=== PATIENT | female | born 1940 | race Caucasian/White ===

== ENCOUNTER 2018-11-18 18:51 | Inpatient (IN) ==
--- NOTE | 2018-11-18 19:24 | PROVIDER DOCUMENTATION ---
HPI-General Adult - General Chief Complaint: Back Pain Stated Complaint: BACK PAIN Time Seen by Provider: 11/18/18 19:13 Source: patient Allergies/Adverse Reactions: Patient Allergies Allergy/AdvReac Type Severity Reaction Status Date / Time diphenhydramine HCl * Allergy SWELLING Verified 02/28/15 05:30 [From Benadryl] morphine Allergy Unknown Verified 03/03/15 13:22 Sulfa (Sulfonamide Allergy ANAPHYLAXIS Verified 03/03/15 13:22 Antibiotics) prednisone AdvReac Unknown Verified 05/10/18 06:39 Home Medications: Home Medication List Medication Instructions Recorded Confirmed Last Taken Type Atenolol 25 mg PO QHS 02/28/15 08/03/15 02/27/15 21:00 History Diazepam [Valium] 10 mg PO HS PRN PRN 02/28/15 08/03/15 02/27/15 21:00 History Gabapentin 1 tab PO BID 02/28/15 08/03/15 02/27/15 21:00 History Meloxicam 15 mg PO DAILY 02/28/15 08/03/15 02/27/15 History Milnacipran [Savella] 100 mg PO BID 02/28/15 08/03/15 02/27/15 History Oxycodone HCl/Acetaminophen 1 each PO Q4H PRN PRN 02/28/15 08/03/15 02/28/15 History [Oxycodone-Acetaminophen 10-325] Polyethylene Glycol 3350 17 gm PO DAILY 02/28/15 08/03/15 02/27/15 History [Smoothlax] Metronidazole [Flagyl] 500 mg PO TID #33 tablet 08/06/15 Unknown Rx Benzonatate [Tessalon Perle] 100 mg PO TID PRN PRN #30 cap 05/10/18 Unknown Rx - History of Present Illness -Gen Adult Nature of Presenting Problems: patient is a 77 yowf presenting to the ED today for back pain. she reports she had an endoscopy done this morning to get her esophagus stretched and she is now having increased back pain. she reports the pain is worse when she takes a deep breath. family reports she has chronic pain, but this pain is worse. patient reports she had some pain leaving the procedure, but the pain has worsened in the last 30 minutes. she denies any NVD, dizziness, cough, fever, or any other symptoms. patient has pain to middle back on palpation. she reports the procedure was done at [facility] today. Location of Pain/Injury: reports: back Pain Radiation: reports: no radiation Quality of Pain: reports: aching, sharp Severity: reports: mild Onset/Duration: reports: just prior to arrival Timing: reports: still present Context/Activities at Onset: reports: none Modifying Factors: improves with: nothing Associated Symptoms: reports: back/neck pain, pain with inspiration. denies: anxiety, arm pain, chest pain, constipation, cough, diaphoresis, diarrhea, dizziness, EENT symptoms, fatigue, fever/chills, genitourinary problems, headaches, heartburn, joint pain, loss of appetite, malaise, muscle aches, sinus congestion/drainage, nausea, rash, seizure, shortness of breath, sensory/motor loss, swelling/mass in abdomen, syncope, vomiting, weakness, trouble walking Similar Symptoms Previously?: No Recently seen or treated by another doctor?: Yes Review of Systems - Adult - REVIEW OF SYSTEMS - ADULT Constitutional: reports: no symptoms reported. denies: chills, fever Eyes: reports: no symptoms reported Ears, Nose, Mouth & Throat: reports: no symptoms reported Cardiovascular: reports: no symptoms reported. denies: chest pain, palpitations, syncope Respiratory: reports: no symptoms reported. denies: cough, shortness of breath Gastrointestinal: reports: no symptoms reported. denies: abdominal pain, constipation, diarrhea, nausea, vomiting Genitourinary: reports: no symptoms reported Musculoskeletal: reports: no symptoms reported Integumentary: reports: no symptoms reported Neurological: reports: no symptoms reported. denies: dizziness/vertigo, headache/migraines Psychiatric: reports: no symptoms reported Endocrine: reports: no symptoms reported Hematologic/Lymphatic: reports: no symptoms reported Allergic/Immunologic: reports: no symptoms reported All Other Systems: Reviewed and Negative Past History - Adult - PAST MEDICAL HISTORY-ADULT Review of Records: reports: Old Records Reviewed, Nursing Assessment Review, Medications Reviewed Cardiovascular: reports: denies history Respiratory: reports: denies history Gastrointestinal: reports: denies history Genitourinary: reports: denies history Musculoskeletal: reports: chronic pain Neurological: reports: spinal cord/brain injury Psychiatric: reports: denies history Endocrine/Immune: reports: denies history - PRIOR SURGERIES/PROCEDURES Surgical/Procedure History: reports: orthopedic (extremity) - IMMUNIZATION STATUS Childhood Immunizations: See Nurse Assessment Flu Vaccine: See Nurse Assessment - SOCIAL HISTORY Smoking: denies Physical Exam-General - PHYSICAL EXAM-ADULT Initial Vital Signs Reviewed: Yes - CONSTITUTIONAL General Appearance: appears well, alert, no apparent distress, other (patient appears in pain) - EYES Eyes: PERRL/EOMI - HEAD, EARS, NOSE, MOUTH & THROAT HENMT: normocephalic/atraumatic, moist mucous membranes, normal ENT inspection - NECK Neck: non-tender, full range of motion, supple - RESPIRATORY Respiratory: chest non-tender, lungs clear, normal breath sounds, no pleuratic chest pain, no respiratory distress, no accessory muscle use, pain on inspiration - CARDIOVASCULAR Cardiovascular: normal peripheral pulses, regular rate, rhythm, no edema, no JVD - GASTROINTESTINAL (ABDOMEN) Abdominal Exam: normal bowel sounds, non tender, soft - LYMPHATIC Lymphatic: no adenopathy - MUSCULOSKELETAL Back Exam: normal inspection, no CVA tenderness, no vertebral tenderness Extremity: normal range of motion, non-tender, normal gait - SKIN Integumentary: normal color, normal turgor, warm/dry - NEUROLOGIC Neurologic: grossly normal, no motor/sensory deficits - PSYCHIATRIC Psych/Mental Status: normal mood/affect, normal thought content, normal thought process, oriented x 3 Progress - PLAN OF CARE/RESULTS Progress/Plan/Lab Results: Vital Signs - 8 hr 11/18/18 18:59 Temperature 98.2 F Pulse Rate 90 Respiratory Rate 18 Blood Pressure 141/88 O2 Sat by Pulse Oximetry 94 L discussed plan of care with patient and family- they understand and agree with plan of care and deny any questions at this time. Dr. Casillas from [facility] did endoscopy today. Result Diagrams: 11/18/18 19:49 11/18/18 19:38 - XRAY 1 XRAY Study: Chest Impression: See EMR Report ( Signed CHEST-2 VIEWS - 11/18/2018 INDICAT ION: back pain post endoscopy COMPARISON: 05/10/2018 FINDINGS: There is stable mild chronic atelectasis in the medial right lung base. The lungs are clear. Heart size is normal. No pneumothorax or pleural effusion. IMPRESSION: No acute disease or change from prior. Electronically signed by Gurpreet Del Rio 11/18/2018 9:03 PM 11/[id number]/[id number] Interpreting Physician: Gurpreet Del Rio MD Dictated Date/Time: 11/18/182101 cc: Herlinda Nuñez; None,PCP) - CT/MRI 1 CT Study: Thorax Impression: See EMR Report (Signed CT THORAX W/CONTRAST - 11/18/2018 INDICATION: back pain post endoscopy COMPARISON: None FINDINGS: There is significant wall thickening of the distal half of the esophagus. The wall thickness measures up to 12 mm. This is asymmetric to the left side. There are normal-sized mediastinal lymph nodes. No adenopathy. Upper abdominal images are unremarkable. The stomach appears normal. Heart and great vessels are normal. There is some mild infiltrate in the left lower lobe. This is mainly in the posterior costophrenic angle. No pneumothorax or pleural effusion. No free air or free fluid. There are moderate degenerative changes of the spine. No acute or suspicious bony lesion. IMPRESSION: 1. Left lower lobe infiltrate/pneumonia. 2. Significant wall thickening of the distal esophagus. Masslike thickening particularly of the posterior left wall. This exam was performed using automated exposure control, adjustment of mA or kV according to patient size, and/or use of iterative reconstruction technique Electronically signed by Gurpreet Del Rio 11/18/2018 10:08 PM 11/18/[id number] Interpreting Physician: Gurpreet Del Rio MD Dictated Date/Time: 11/18/182202 cc: Herlinda Nuñez; None,PCP) - CONSULTS/PCP/HOSPITALIST Notification #1 *Consult/PCP/Hospitalist*: Dr. Qureshi Time Discussed: 22:55 Reason/Comments: admit for pneumonia Consult Disposition: Admit Departure - Departure Date of Disposition Decision: 11/18/18 Time of Disposition Decision: 22:51 DIAGNOSIS: Pneumonia Qualifiers: Pneumonia type: due to unspecified organism Laterality: left Lung location: lower lobe of lung Qualified Code(s): J18.1 - Lobar pneumonia, unspecified organism Urinary tract infection Qualifiers: Urinary tract infection type: site unspecified Hematuria presence: without hematuria Qualified Code(s): N39.0 - Urinary tract infection, site not specified Disposition: ADMITTED INPATIENT 09 Certified Medical Emergency: Emergent Condition: Stable Referrals and Follow-Ups: None,PCP [Primary Care Provider] - - Critical Care Note This patient required my direct & personal management of CC.: No Attestation - Physician/ ANTOINE Attestation Patient care was provided by Advanced Practice Provider:: Yes Advanced Practice Provider:: Herlinda Nuñez Advanced Practice Provider documentation review:: The Mid-level provider documentation, treatment plan and medical decision making was reviewed by the physician who agrees with all treatment and medical decision making by the MLP. The physician spent face to face time with patient:: No Advanced Practice Provider documentation review:: Supervising physician onsite a nd consulted in the evaluation and care of this patient. The physician did not have a face to face encounter with the patient.
[2018-11-18 19:53] LABS: BASO# 0.02 X1000 (0.0-0.2); BASO% 0.1 % (0.0-0.8); EOS# 0.02 X1000 (0.0-0.7); EOS% 0.1 % (0.0-10.0); HEMATOCRIT 41.4 % (37.0-47.0); HEMOGLOBIN 13.8 g/dL (12.0-16.0); IMM GRAN# 0.03 X1000 (0.0-0.04); IMM GRAN% 0.2 % (0.0-0.5); LYMPH# 1.36 X1000 (1.2-3.4); LYMPH% 8.3 % (20.5-51.1); MCH 30.5 PG (27-31); MCHC 33.3 g/dL (33-37); MCV 91.6 FL (81-99); MONO# 1.71 X1000 (0.11-0.59); MONO% 10.5 % (1.7-9.3); MPV 10.3 FL (7.4-10.4); NEUT# 13.18 X1000 (1.4-6.5); NEUT% 80.8 % (42.2-75.2); PLT 276 X1000 (130-400); RBC 4.52 XMIL (4.2-5.4); RDW 14.7 % (11.5-14.5); WBC 16.32 X1000 (4.8-10.8)
[2018-11-18 20:24] LABS: AGAP 13; ALBUMIN 4.5 g/dL (3.5-5.0); ALKALINE PHOSPHATASE 85 U/L (32-104); BUN 17 mg/dL (8-22); CALCIUM 9.4 mg/dL (8.8-10.2); CHLORIDE 103 mmol/L (98-107); COSMO 285; CREATININE 0.8 mg/dL (0.5-0.9); ESTIMATED GFR > 60; GLUCOSE 135 mg/dL (70-104); GOT 16 U/L (10-30); GPT 10 U/L (10-36); POTASSIUM 3.7 mmol/L (3.5-5.1); SODIUM 141 mmol/L (136-145); TCO2 26 mmol/L (25-35); TOTAL PROTEIN 7.5 g/dL (6.3-8.3)
--- NOTE | 2018-11-18 21:06 | Diag Imaging Result Doc PS360 ---
CHEST-2 VIEWS - 11/18/2018 INDICATION: back pain post endoscopy COMPARISON: 05/10/2018 FINDINGS: There is stable mild chronic atelectasis in the medial right lung base. The lungs are clear. Heart size is normal. No pneumothorax or pleural effusion. IMPRESSION: No acute disease or change from prior. Electronically signed by Gurpreet Del Rio 11/18/2018 9:03 PM
[2018-11-18 21:49] LABS: BILIRUBIN URINE NEGATIVE (NEGATIVE); BLOOD URINE 1+ (NEGATIVE); CLARITY VERY CLOUDY (CLEAR); COLOR YELLOW; GLUCOSE URINE NEGATIVE (NEGATIVE); KETONE URINE 1+(Small) mg/dL (NEGATIVE); LEUKOCYTES URINE 2+ (NEGATIVE); NITRITE URINE POSITIVE (NEGATIVE); PROTEIN URINE 1+(30 mg/dL) mg/dL (NEGATIVE); UROBILINOGEN URINE NORMAL
[2018-11-18 22:05] LABS: URINE SOURCE CLEAN CATCH
[2018-11-18 22:08] LABS: URINE BACTERIA 4+ /HFP; URINE CAST NONE SEEN /LPF; URINE CRYSTAL NONE SEEN /HPF; URINE EPITHELIAL CELLS <10 /HPF (<10); URINE RBC <10 /HPF (<10); URINE SMALL ROUND CELLS TRANSITIONAL PRESENT; URINE WBC TNTC /HPF (<10); URINE YEAST NONE SEEN /HPF
--- NOTE | 2018-11-18 22:10 | Diag Imaging Result Doc PS360 ---
CT THORAX W/CONTRAST - 11/18/2018 INDICATION: back pain post endoscopy COMPARISON: None FINDINGS: There is significant wall thickening of the distal half of the esophagus. The wall thickness measures up to 12 mm. This is asymmetric to the left side. There are normal-sized mediastinal lymph nodes. No adenopathy. Upper abdominal images are unremarkable. The stomach appears normal. Heart and great vessels are normal. There is some mild infiltrate in the left lower lobe. This is mainly in the posterior costophrenic angle. No pneumothorax or pleural effusion. No free air or free fluid. There are moderate degenerative changes of the spine. No acute or suspicious bony lesion. IMPRESSION: 1. Left lower lobe infiltrate/pneumonia. 2. Significant wall thickening of the distal esophagus. Masslike thickening particularly of the posterior left wall. This exam was performed using automated exposure control, adjustment of mA or kV according to patient size, and/or use of iterative reconstruction technique Electronically signed by Gurpreet Del Rio 11/18/2018 10:08 PM
[2018-11-18] MEDS ORDERED: NS 1,000 ML IV ONE ×2 (22:52→22:56)
[2018-11-18] MEDS ORDERED: ZITHROMAX PO ONE (22:54)
[2018-11-18] MEDS ORDERED: ROCEPHIN 1 GM in NS 50 ML IV ONE (22:54)
[2018-11-19] MEDS ORDERED: PERCOCET-10 PO ONE (00:22)
[2018-11-19] MEDS ORDERED: NEURONTIN PO SCH ×3 (09:00→21:00)
[2018-11-19] MEDS: DITROPAN PO SCH (09:57)
[2018-11-19] MEDS: CYMBALTA PO SCH (09:57)
[2018-11-19] MEDS: PERCOCET-10 PO PRN ×3 (09:57→21:01)
[2018-11-19] MEDS: ZANAFLEX PO SCH ×2 (09:57→20:56)
[2018-11-19] MEDS: ZITHROMAX PO SCH (09:57)
[2018-11-19 10:34] LABS: INR 1.1; PROTIME 14.8 Seconds (11.0-16.0); PTT 29.5 Seconds (22.3-41.8)
[2018-11-19] MEDS: NEURONTIN PO SCH ×2 (15:30→20:55)
[2018-11-19] MEDS: ZOSYN 3.375 GM in NS 50 ML IV SCH ×2 (15:31→21:26)
--- NOTE | 2018-11-19 16:10 | HISTORY AND PHYSICAL ---
CHIEF COMPLAINT: Back pain. HISTORY OF PRESENT ILLNESS: This is a 77-year-old female who presented to the emergency room complaining of increasing back pain. The patient underwent an esophageal dilatation in the morning prior to presenting to the emergency room. She stated that after the procedure she developed this back pain, that they were aware, and that despite this, she was discharged after the procedure. The pain continued to increase. She stated that "it got a lot worse just before I came to the emergency room, that is why I am here." She denied any chest pain, any syncope, any dizziness, shortness of breath. PAST MEDICAL HISTORY: 1. Esophageal stricture. 2. Hypertension. 3. Fibromyalgia. 4. Chronic pain. PAST SURGICAL HISTORY: Appendectomy, hysterectomy, tonsillectomy, right knee surgery. SOCIAL HISTORY: She denies alcohol, tobacco, or illicit drug use. ALLERGIES: Benadryl which causes swelling. Morphine and prednisone with unknown pain. Sulfa which causes anaphylaxis. HOME MEDICATIONS: A list will be obtained by the nursing staff and once verified, will review and restarted as is appropriate. REVIEW OF SYSTEMS: Discussed with patient with pertinent positives stated in the HPI. She denied any syncope or dizziness, any chest pain or palpitations, any nausea, vomiting, diarrhea, constipation, any hematuria, dysuria, frequency, urgency. PHYSICAL EXAMINATION: GENERAL: This is a 77-year-old female who is lying in the bed, in no distress. VITAL SIGNS: Blood pressure is 129/69, with a heart rate of 84, respirations 16, temperature is 99.4 degrees, with room air saturations 98%. EYES: Pupils are equal, round, react to light. EOMs are intact. Sclerae are anicteric. HENT: Head is normocephalic, atraumatic. Mucous membranes are moist. NECK: Supple. Trachea midline. CARDIOVASCULAR: Regular rate and rhythm. S1 and S2 appreciated. She has no lower extremity edema. Peripheral pulses are palpable x4 extremities. Calves are nontender bilateral. PULMONARY: Breath sounds are clear with no increased work of breathing noted. Chest rises and falls symmetrically with respiration. GENITOURINARY: She has no CVA nor suprapubic tenderness. GASTROINTESTINAL: Abdomen is soft, nontender, nondistended. Bowel sounds in all 4 quadrants. NEUROLOGIC: She is alert and oriented x3. SKIN: Warm and dry. LABS: WBC is 16.3, with hemoglobin 13.8, hematocrit 41.4, platelets of 276,000. Sodium is 141, potassium 3.7, BUN 17, creatinine 0.8, with a glucose of 135. Urinalysis is positive nitrites with too numerous to count microscopic white blood cells and 4+ bacteria. Blood cultures and urine culture pending. CT of the chest reveals left lower lobe infiltrate or pneumonia. Chest x- ray, no acute disease. ASSESSMENT AND PLAN: 1. Left lower lobe pneumonia. This could very likely be aspiration as the patient is just a few hours postop having an esophageal dilatation. We will stop Rocephin, change her to Zosyn, and continue her Zithromax. We will start incentive spirometer. Order for her to be out of the bed in the chair with meals and p.r.n. 2. Possible urinary tract infection. We will continue antibiotics as stated above and watch for urine culture. 3. Chronic back pain. We will continue her home medications. 4. Leukocytosis which is from pneumonia and urinary tract infection. 5. For deep vein thrombosis prophylaxis will use SCDs and for gastrointestinal prophylaxis Prilosec. Plan discussed with Dr. Qureshi. Further treatments pending hospital course. Dictated by MANOJ Siu for Madhav Qureshi MD cc: MANOJ Siu MD [facility]
--- NOTE | 2018-11-19 20:25 | HISTORY AND PHYSICAL ---
ADDENDUM: Patient seen and examined by myself. Full note dictated and discussed with nurse practitioner. Patient presented to the hospital initially complaining of back pain, noting that she was having some nausea. She had an EGD where they stretched her esophagus a few days ago. Notes that symptoms seem to have continued to worsen since then. She has increased cough and congestion. We are going to admit her to the hospital. She appears to have pneumonia. We are going to treat for aspiration pneumonia and will follow. cc: Madhav Qureshi MD
[2018-11-19] MEDS: PRILOSEC PO SCH (20:55)
[2018-11-19] MEDS: DESYREL PO SCH (20:55)
[2018-11-19] MEDS: TENORMIN PO SCH (20:56)
[2018-11-19] MEDS ORDERED: ROCEPHIN 1 GM in NS 50 ML IV SCH (23:00)
[2018-11-20] MEDS: ZOSYN 3.375 GM in NS 50 ML IV SCH ×4 (03:07→21:52)
[2018-11-20] MEDS: PRILOSEC PO SCH ×2 (06:16→20:56)
[2018-11-20] MEDS: PERCOCET-10 PO PRN ×3 (06:23→23:31)
[2018-11-20 08:50] LABS: HEMATOCRIT 33.8 % (37.0-47.0); HEMOGLOBIN 10.9 g/dL (12.0-16.0); MCH 29.9 PG (27-31); MCHC 32.2 g/dL (33-37); MCV 92.9 FL (81-99); MPV 10.2 FL (7.4-10.4); RBC 3.64 XMIL (4.2-5.4); RDW 14.9 % (11.5-14.5); WBC 10.74 X1000 (4.8-10.8)
[2018-11-20 09:01] LABS: AGAP 9; ALBUMIN 3.4 g/dL (3.5-5.0); ALKALINE PHOSPHATASE 65 U/L (32-104); BUN 13 mg/dL (8-22); CALCIUM 8.4 mg/dL (8.8-10.2); CHLORIDE 106 mmol/L (98-107); COSMO 281; CREATININE 0.8 mg/dL (0.5-0.9); ESTIMATED GFR > 60; GLUCOSE 155 mg/dL (70-104); GOT 12 U/L (10-30); GPT 9 U/L (10-36); POTASSIUM 3.9 mmol/L (3.5-5.1); SODIUM 139 mmol/L (136-145); TCO2 24 mmol/L (25-35); TOTAL PROTEIN 6.1 g/dL (6.3-8.3)
[2018-11-20] MEDS: ZANAFLEX PO SCH ×2 (09:36→20:56)
[2018-11-20] MEDS: ZITHROMAX PO SCH (09:36)
[2018-11-20] MEDS: CYMBALTA PO SCH (09:36)
[2018-11-20] MEDS: DITROPAN PO SCH (09:36)
[2018-11-20] MEDS: NEURONTIN PO SCH ×3 (09:36→20:56)
--- NOTE | 2018-11-20 19:25 | PROGRESS NOTE ---
DATE: 11/20/2018 SUBJECTIVE: Patient overall notes that she is starting to feel a little bit better. She is having less cough and congestion. Her back pain is improved. OBJECTIVE: Vital signs: Temperature 98 degrees, pulse 83, respiratory rate 18, BP 121/55. General: Patient is awake, alert, currently in no respiratory distress. She is pleasant to talk with. HEENT: Normocephalic. Neck: Supple. Cardiovascular: Regular rate. No murmurs. Chest: Clear. No crackles. No wheezing. Good air movement. Abdomen: Soft, nondistended. Extremities: Moves all extremities. Neurologic: No focal changes. ASSESSMENT: 1. Left lower lobe pneumonia. 2. Gram-negative michelle urinary tract infection. 3. Chronic pain. 4. Leukocytosis. PLAN: We will continue patient in the hospital. Continue antibiotics and will follow. cc: Madhav Qureshi MD
[2018-11-20] MEDS: DESYREL PO SCH (20:56)
[2018-11-20] MEDS: TENORMIN PO SCH (20:56)
[2018-11-21] MEDS: ZOSYN 3.375 GM in NS 50 ML IV SCH ×2 (03:08→09:27)
[2018-11-21] MEDS: PRILOSEC PO SCH ×2 (06:12→20:56)
[2018-11-21] MEDS: CYMBALTA PO SCH (09:26)
[2018-11-21] MEDS: NEURONTIN PO SCH ×3 (09:26→20:56)
[2018-11-21] MEDS: DITROPAN PO SCH (09:26)
[2018-11-21] MEDS: PERCOCET-10 PO PRN ×3 (09:27→23:18)
[2018-11-21] MEDS: ZANAFLEX PO SCH ×2 (09:27→20:57)
[2018-11-21] MEDS: ZITHROMAX PO SCH (09:27)
[2018-11-21] MEDS ORDERED: SEPTRA DS PO SCH (11:30)
[2018-11-21] MEDS: LEVAQUIN PO SCH (12:34)
--- NOTE | 2018-11-21 16:45 | EKG Report ---
Test Performed on : 11/21/2018 3:47:14 PM Test Reason : irregular telemetry reading Blood Pressure : / mmHG Vent. Rate : 072 BPM Atrial Rate : 072 BPM P-R Int : 144 ms QRS Dur : 082 ms QT Int : 414 ms P-R-T Axes : 051 027 063 degrees QTc Int : 453 ms Normal sinus rhythm. Possible Anterior infarct (cited on or before 02-AUG-2015) Abnormal ECG When compared with ECG of 02-AUG-2015 20:18, Vent. rate has decreased BY 62 BPM Criteria for Inferior infarct are no longer present Confirmed by Devyn Jin MD ([id number]) on 11/25/2018 9:38:35 PM
--- NOTE | 2018-11-21 19:12 | PROGRESS NOTE ---
DATE: 11/21/2018 SUBJECTIVE: The patient notes that she is feeling a lot better. She is still kind of fatigued and tired, still very nervous about going home. Denies any cough or congestion. OBJECTIVE: Vital signs reviewed. Temperature 97.5 degrees, pulse 65, respiratory 18, BP 131/65.General: The patient is awake, alert. She is in no distress. HEENT: Normocephalic. Neck supple. Cardiovascular: Regular rate. No murmurs. Chest clear, nonlabored. No wheezing. Abdomen soft, nondistended. Extremities: Moves all extremities. ASSESSMENT: 1. Escherichia coli urinary tract infection, pansensitive. 2. Left lower lobe pneumonia. 3. Chronic pain. 4. Leukocytosis. 5. Generalized weakness. PLAN: We will continue the patient in the hospital today. We will attempt to change her antibiotics. We will try to assist her in getting out of bed. Hopefully she can get strong enough to go home soon. cc: Madhav Qureshi MD
[2018-11-21] MEDS: DESYREL PO SCH (20:56)
[2018-11-21] MEDS: TENORMIN PO SCH (20:57)
[2018-11-22] MEDS: PERCOCET-10 PO PRN ×3 (04:47→20:43)
[2018-11-22] MEDS: PRILOSEC PO SCH ×2 (06:20→20:31)
[2018-11-22] MEDS: CYMBALTA PO SCH (10:25)
[2018-11-22] MEDS: ZANAFLEX PO SCH ×2 (10:25→20:31)
[2018-11-22] MEDS: DITROPAN PO SCH (10:25)
[2018-11-22] MEDS: LEVAQUIN PO SCH (10:25)
[2018-11-22] MEDS: NEURONTIN PO SCH ×3 (10:25→20:31)
[2018-11-22] MEDS ORDERED: EXCEDRIN MIGRAINE PO PRN (10:45)
[2018-11-22] MEDS: CULTURELLE PO SCH ×2 (12:30→20:31)
--- NOTE | 2018-11-22 14:29 | PROGRESS NOTE ---
DATE: 11/22/2018 SUBJECTIVE: Patient notes she did not feel well this morning. States she has been having some abdominal pain, a little bit of nausea. She has had some diarrhea denies any blood in her stool. Denies fever, hematemesis, hematochezia. PHYSICAL EXAMINATION: Temperature 99.1, pulse 83, respiratory 18, BP 106/36.General: Patient is awake, alert. She does appear slightly more ill today as she is having difficulty getting to the restroom and back. HEENT: Normocephalic. Neck: Supple. Cardiovascular: Regular rate. No murmurs. Chest: Clear nonlabored. Abdomen: Soft, nondistended, nontender. Extremities: Moves all extremities. ASSESSMENT: 1. Diarrhea. 2. Left lower lobe pneumonia. 3. Escherichia coli urinary tract infection, pansensitive. 4. Chronic pain. 5. Depression. 6. Leukocytosis. PLAN: We will check C. difficile. Place her on a probiotic. We will continue to follow. Will keep her in the hospital today given her current symptoms. Further orders as needed. cc: Madhav Qureshi MD
[2018-11-22] MEDS: DESYREL PO SCH (20:31)
[2018-11-22] MEDS: TENORMIN PO SCH (20:31)
[2018-11-23] MEDS: PRILOSEC PO SCH (06:02)
[2018-11-23 07:35] VITALS: BP 133/73
[2018-11-23] MEDS: NEURONTIN PO SCH (10:14)
[2018-11-23] MEDS: ZANAFLEX PO SCH (10:14)
[2018-11-23] MEDS: LEVAQUIN PO SCH (10:14)
[2018-11-23] MEDS: DITROPAN PO SCH (10:14)
[2018-11-23] MEDS: CULTURELLE PO SCH (10:14)
[2018-11-23] MEDS: CYMBALTA PO SCH (10:14)
--- NOTE | 2018-11-24 13:36 | DISCHARGE SUMMARY ---
ADMISSION DATE: 11/19/2018 DISCHARGE DATE: 11/23/2018 ADMISSION DIAGNOSIS: 1. Left lower lobe pneumonia. 2. Possible urinary tract infection. 3. Chronic back pain. 4. Leukocytosis secondary to pneumonia and urinary tract infection. DISCHARGE DIAGNOSIS: 1. Diarrhea. 2. Left lower lobe pneumonia. 3. Escherichia coli urinary tract infection pansensitive. 4. Chronic pain. 5. Depression. 6. Leukocytosis. CONSULTATIONS: None. SURGERIES PROCEDURES: None. HOSPITAL COURSE: The night of 11/18/2018 Ms. Miranda 77-year-old female presented to [facility] with complaints of increasing back pain. Apparently she had undergone esophageal dilatation the morning prior to presentation. She developed this back pain after having the procedure done. After being discharged from having the procedure she continued to have an increase in pain in her back and that is what brought her here. She had a left lower lobe pneumonia found on imaging was started on Zosyn and Zithromax, found to have a possible UTI with antibiotics that would cover and continue her on her home medications for pain control, developed some diarrhea during her stay, the urinary tract infection came back as E coli but pansensitive. Due to the diarrhea being on antibiotics she was added some probiotics and today was discharged home with Levaquin. DISCHARGE VITAL SIGNS: Temperature 98.3 degrees, heart rate 72, respiratory rate 16, blood pressure 133/73, O2 saturation 94% on room air. DISCHARGE LAB DATA: White blood cells 10,000, hemoglobin 10, hematocrit 33, platelet count 198,000, sodium 139, potassium 3.9, BUN is 13, creatinine 0.8, glucose 155, calcium 8.4, bilirubin 0.50, AST 12, ALT 9, albumin 3.4, lactate 1.3. Micro, blood cultures negative, urine culture E coli pansensitive and negative ESBL . IMAGING: On the chest x-ray no acute disease or change from prior, chest CT left lower lobe infiltrate pneumonia, significant wall thickening of the distal esophagus masslike thickening particularly of the posterior left wall. EKG normal sinus rhythm, rate 72, QTc 453. DISCHARGE MEDICATIONS: 1. Atenolol 25 mg p.o. nightly. 2. Trazodone 100 mg p.o. nightly. 3. Cymbalta 30 mg p.o. daily. 4. Ditropan 5 mg p.o. daily. 5. Neurontin 600 mg p.o. t.i.d. 6. Mobic 50 mg p.o. daily. 7. Percocet 1 p.o. every 4 hours p.r.n. 8. Zanaflex 4 mg p.o. twice daily. 9. Levaquin 500 mg p.o. daily for 6 more days. DISCHARGE DIET: Regular. DISCHARGE ACTIVITY: As tolerated. DISCHARGE INSTRUCTIONS: If her condition changes contact physician and/or return to emergency department, changes may include but are not limited to shortness of breath, increased fatigue, excessive bleeding, unexplained weight loss or gain, unmanageable pain signs or symptoms of infection. DISCHARGE PHYSICIAN FOLLOWUPS: Primary care provider Cheyenne Maguire. DISCHARGE DISPOSITION: Home. Dictated by MANOJ Pineda for Madhav Qureshi MD cc: MANOJ Pineda MD
--- NOTE | 2018-11-24 21:38 | DISCHARGE SUMMARY ---
ADMISSION DATE: 11/19/2018 DISCHARGE DATE: 11/23/2018 ADDENDUM: Patient seen and examined by myself. Full note dictated and discussed with nurse practitioner. On discharge, patient is awake, alert. She did have some diarrhea yesterday, but this seems to have improved. She was admitted to the hospital with back pain, subsequently diagnosed with Escherichia coli extended spectrum beta-lactamase negative pansensitive. She was initially started on Zosyn, then changed over to Levaquin after the culture. Please see full note. cc: Madhav Qureshi MD
== END 2018-11-23 10:20 | disposition home or self-care (01) | DRG 178 ==
LOC: P.ED 18:51 → P.EDIPHOLD 11-19 00:32 → INTOOBSV 11-19 00:32 → OBSVTOIN 11-19 00:32 → P.MEDSURG 11-19 07:38
PROVIDERS: ATTEND Family Medicine
CPT/HCPCS: 71020; 71046; 71260; 80053; 81001; 82550; 83605; 84484; 85025; 85027; 85610; 85730; 87040; 87077; 87088; 87186; 93005; 93010; 94761; 94799; 96361; 96365; 96366; 96367; 96376; 99285; A9270; G0378; J0696; J2543; J7030; Q9967